=== PATIENT | female | born 1940 | race Caucasian/White ===

== ENCOUNTER 2021-01-13 11:10 | Emergency (ER) | payer MEDICARE, OTHER ==
[2021-01-13 13:23] LABS: BASOPHIL 0.7 % (0-2); EOSINOPHIL 2.7 % (0-7); HCT 38.9 % (37.0-47.0); HGB 12.9 g/dl (12.5-16.0); LYMPHOCYTE 26.2 % (15-48); MCH 31.2 pg (25.0-31.0); MCHC 33.2 g/dL (32.0-36.0); MONOCYTE 12.1 % (0-12); MPV 10.5 fL (6.0-9.5); NEUTROPHIL 58.1 % (41-80); NRBC 0; PLT 177 K/uL (150-400); RBC 4.14 M/uL (4.20-5.40); WBC 5.6 K/uL (4.0-10.5)
[2021-01-13 13:31] LABS: BILIRUBIN NEGATIVE (NEGATIVE); BLOOD NEGATIVE Ery/uL (NEGATIVE); CLARITY CLEAR (CLEAR); COLOR YELLOW (YELLOW); GLUCOSE (U) TRACE mg/dL (NORMAL); LEUKOCYTES NEGATIVE Leu/uL (NEGATIVE); NITRITE POSITIVE (NEGATIVE); PROTEIN TRACE (LOW) mg/dL (NEGATIVE); SPECIFIC GRAVITY <=1.005 (1.001-1.030)
[2021-01-13 13:51] LABS: BACTERIA 1+; BILIRUBIN - TOTAL 0.5 mg/dL (0.2-1.0); CREATININE 0.5 mg/dL (0.51-0.95); GLOBULIN (CALCULATION) 3.5 g/dL; MAGNESIUM 2.2 mg/dL (1.8-2.4); POTASSIUM 4.6 mmol/L (3.5-5.1); TOTAL PROTEIN 7.5 g/dL (6.4-8.2); URINARY RBC RARE
[2021-01-13] MEDS ORDERED: AUGMENTIN 500-1 EACH PO (17:17)
[2021-01-13] MEDS ORDERED: NORCO 5-325 TA1 EACH PO (17:20)
== END 2021-01-13 17:35 | disposition home or self-care (01) ==
LOC: FER 11:10
PROVIDERS: Emergency Medicine
DX: N39.0 Urinary tract infection, site not specified (principal); N32.89 Other specified disorders of bladder; Z88.1 Allergy status to other antibiotic agents; Z88.2 Allergy status to sulfonamides
CPT/HCPCS: 36415; 80053; 81001; 83605; 83735; 84145; 85025; 87088; J0696; J1170; J2405

== ENCOUNTER 2021-01-18 12:18 | Emergency (ER) | payer MEDICARE, OTHER ==
[~2021-01-18 12:18] MED LIST: AUGMENTIN 500-1 EACH PO; NORCO 5-325 TA1 EACH PO
[2021-01-18 16:58] LABS: BILIRUBIN NEGATIVE (NEGATIVE); BLOOD NEGATIVE Ery/uL (NEGATIVE); CLARITY CLEAR (CLEAR); COLOR YELLOW (YELLOW); GLUCOSE (U) NORMAL (NORMAL); LEUKOCYTES NEGATIVE Leu/uL (NEGATIVE); NITRITE NEGATIVE (NEGATIVE); PROTEIN NEGATIVE (NEGATIVE); UROBILINOGEN 0.2 mg/dL (0.2-1.0)
[2021-01-18] MEDS ORDERED: PYRIDIUM100 MG PO (18:14)
== END 2021-01-18 18:36 | disposition home or self-care (01) ==
LOC: FER 12:18
PROVIDERS: Emergency Medicine
DX: R30.0 Dysuria (principal); G20 Parkinson's disease; Z88.1 Allergy status to other antibiotic agents; Z88.2 Allergy status to sulfonamides
CPT/HCPCS: 81003; 99283; J0696

== ENCOUNTER 2021-11-16 10:27 | Emergency (ER) | payer MEDICARE, OTHER ==
[~2021-11-16 10:27] MED LIST changes: +PYRIDIUM100 MG PO
== END 2021-11-16 14:32 | disposition home or self-care (01) ==
LOC: FER 10:27
DX: I10 Essential (primary) hypertension (principal); G20 Parkinson's disease; Z88.1 Allergy status to other antibiotic agents; Z88.2 Allergy status to sulfonamides
CPT/HCPCS: 99283